=== PATIENT | female | born 1995 | race African-American/Black ===

== ENCOUNTER 2021-11-30 16:18 | Emergency (ER) | payer OTHER ==
[2021-11-30 17:24] VITALS: BP 127/78; PULSE 69; TEMP 97.9; BMI 27.3
[2021-12-03 17:08] LABS: SARS-CoV-2 NAA Not Detected (Not Detected)
== END 2021-11-30 19:18 | disposition home or self-care (01) ==
LOC: JER 16:18
DX: J11.1 Influenza due to unidentified influenza virus with other respiratory manifestations (principal)
CPT/HCPCS: 87070; 87651; 99283-25; C9803; U0003; U0005